=== PATIENT | male | born 1955 | race Caucasian/White ===

== ENCOUNTER 2017-05-20 05:18 | Day surgery (SDC) | payer OTHER ==
[~2017-05-20] VITALS: Ht 175.3 cm; Wt 103.9 kg
--- NOTE | ~2017-05-20 | H ---
[facility] [place] [address] HISTORY AND PHYSICAL Name: BRENNEN FELICIANO Room #: 150-17 [facility]..#: [id number] Admission: 05/20/17 Attend Phys: Fahad Ferguson MD Discharge: Date of : 53 Report #: [id number] THIS REPORT FOR: //name// CC: Stevie Ferguson DATE OF SERVICE: 05/20/2017 PREOPERATIVE DIAGNOSIS: Umbilical hernia. HISTORY OF PRESENT ILLNESS: The patient is a 62-year-old who was seen for umbilical hernia in the office. A few weeks ago, he has seen a urologist who noticed the hernia. He is complaining of right discomfort adjacent to the umbilicus. The hernia is getting bigger. He has gained some weight in the abdominal area. No cough. No chronic sneezing. No heavy lifting. He has been having some tremor issues. Bowels are working well. He does have difficulty urination, that is why he has seen a urologist. The patient noted to have an umbilical hernia, recommended repair. He did have cardiac evaluation and he has been cleared for surgery. PAST MEDICAL HISTORY: HIV positive, COPD, status post coronary artery disease, status post bypass graft, acid reflux, anxiety, near syncope, high blood pressure and hyperlipidemia. MEDICATIONS: Crestor 40 mg daily, alprazolam 0.5 mg 3 times a day as needed, Atripla, carvedilol 6.5, aspirin 81 mg, Nitrostat, ____, Wellbutrin, multivitamin, gabapentin, benzonatate, Flomax. ALLERGIES: HE IS ALLERGIC TO CYMBALTA. PAST SURGICAL HISTORY: [facility] FAMILY HISTORY: Heart disease and cancer. SOCIAL HISTORY: Retired, on disability. Has disability. He quit smoking 8 years ago, occasionally drinks. REVIEW OF SYSTEMS: Difficulty with breathing, heart issues and tremor. PHYSICAL EXAMINATION: GENERAL: The patient is a well-nourished male, in no acute distress. HEENT: Pupils react to light. Extraocular muscles are intact. Oropharynx clear. NECK: Soft and supple. No mass, no JVD. LUNGS: Clear. HEART: Regular rate and rhythm. No murmur or gallop. [facility] [address] [place] [address] HISTORY AND PHYSICAL Name: BRENNEN FELICIANO Room #: [address] [place] [address].#: [id number] Admission: 05/20/17 Attend Phys: Fahad Ferguson MD Discharge: Date of : 53 Report #: [id number] ABDOMEN: Soft, nondistended, nontender. No ascites. He does have a moderate size umbilical hernia. Partially reducible. EXTREMITIES: No cyanosis, clubbing, edema. IMPRESSION: The patient has a symptomatic umbilical hernia, here for repair. Does have cardiac disease. He was cleared by senior geotechnical engineer to proceed with umbilical hernia repair. Procedure was discussed, use of mesh was discussed. Risks of bleeding, infection, mesh infection were discussed. Hernia recurrence was discussed. The patient wished to proceed. By: [id number] Fahad Ferguson MD /nt
--- NOTE | ~2017-05-20 | O ---
[facility] [place] [address] OPERATIVE REPORT Name: BRENNEN FELICIANO Room #: 150[address] [place] [address]..#: [id number] Admission: 05/20/17 Attend Phys: Fahad Ferguson MD Discharge: Date of : 53 Report #: [id number] THIS REPORT FOR: //name// CC: Stevie Ferguson DATE OF SERVICE: 05/20/2017 PREOPERATIVE DIAGNOSIS: Symptomatic umbilical hernia. POSTOPERATIVE DIAGNOSIS: Symptomatic umbilical hernia. PROCEDURE PERFORMED: Repair of umbilical hernia with medium Ventralex ST patch. ANESTHESIA: General. SURGEON: Fahad Ferguson M.D. COMPLICATIONS: None. ESTIMATED BLOOD LOSS: 2 mL. PROCEDURE NOTE: With the patient under general anesthesia with an LMA, abdomen was prepped and draped in sterile fashion. IV antibiotic was administered. Timeout was performed. A 0.25% Marcaine was used to anesthetize the skin and subcutaneous tissue. Curved incision was made infraumbilically. The skin of the umbilicus is fairly thin. There is a 3 cm size hernia sac. There is omental fat within the hernia sac. The hernia sac was partially excised. The fascia was then cleaned off. The peritoneum of the hernia sac was then closed with 4-0 PDS. The hernia sac was then reduced below the fascia. Dissection was then carried out in the properitoneal space. Cautery was used to obtain hemostasis. Cautery and blunt dissection was performed freeing the peritoneum from the wall. Once this was reduced and a pocket was made in the properitoneal space, a medium sized Ventralex patch was placed. This was folded and then placed in the properitoneal space under the fascia. The mesh opened up well. The fascia was then trimmed to clean tissue and then closed with horizontal mattress fashion of 0 Prolene x 2. The skin of the umbilicus was then sewn down to the fascia. This was performed with a 4-0 PDS suture x 2. The skin was then closed with 5-0 PDS running subcuticular fashion. Steri-Strips were applied, 4 x 4 was placed in the umbilicus and Steri-Strip was then placed over the gauze dressing. The patient was awakened and taken to recovery room. By: [id number] Fahad Ferguson MD /nt
[~2017-05-20 05:18] MED LIST: ANORO ELLIPTA1 EACH INH; ATRIPLA TABLET1 EACH PO; BUPROPION HCL150 M1 PO; CARVEDILOL6.25 MG; CENTRUM SILVER1 EAC4 PO; CRESTOR40 MG PO; FLOMAX0.4 MG PO; NEURONTIN 400400 M1 PO; OMEPRAZOLE 20 M20 M1 PO; XANAX 0.5 MG0.5 MG PO
[2017-05-20 11:35] LABS: HEMATOCRIT 46.8 % (42.0-52.0); HEMOGLOBIN 16.1 gm/dL (14.0-18.0)
[2017-05-20 11:45] VITALS: BP 129/93
[2017-05-20] MEDS ORDERED: PERCOCET PO (13:11)
[2017-05-20 13:47] VITALS: BP 129/93
== END 2017-05-20 14:23 | disposition home or self-care (01) ==
LOC: OR 05:18 → TBA 05:18 → OR 14:23
PROVIDERS: Surgery
DX: K42.9 Umbilical hernia without obstruction or gangrene (principal); I11.0 Hypertensive heart disease with heart failure; I25.10 Atherosclerotic heart disease of native coronary artery without angina pectoris; I25.2 Old myocardial infarction; E78.5 Hyperlipidemia, unspecified; J43.9 Emphysema, unspecified; K21.9 Gastro-esophageal reflux disease without esophagitis; F41.8 Other specified anxiety disorders; Z79.82 Long term (current) use of aspirin; Z95.1 Presence of aortocoronary bypass graft; Z79.899 Other long term (current) drug therapy; Z88.8 Allergy status to other drugs, medicaments and biological substances; Z82.49 Family history of ischemic heart disease and other diseases of the circulatory system; Z98.890 Other specified postprocedural states; Z87.891 Personal history of nicotine dependence; Z95.5 Presence of coronary angioplasty implant and graft
CPT/HCPCS: 50010; 50101; 50130; 50386; 50403; 56524; 56525; 62110; 62900; 70005

== ENCOUNTER → 2018-12-06 | Outpatient (CLI) | payer OTHER ==
[~2018-12-06] MED LIST changes: +PERCOCET PO
== END ==
LOC: RAD 15:26
DX: M47.816 Spondylosis without myelopathy or radiculopathy, lumbar region (principal); M48.061 Spinal stenosis, lumbar region without neurogenic claudication; M54.32 Sciatica, left side

== ENCOUNTER → 2019-01-13 | Outpatient (CLI) | payer OTHER | LOC: RAD 13:36 | DX: M47.816 Spondylosis without myelopathy or radiculopathy, lumbar region (principal); B20 Human immunodeficiency virus [HIV] disease ==

== ENCOUNTER → 2019-05-29 | Outpatient (CLI) | payer OTHER ==
[2019-05-29 13:32] LABS: CREATININE 1.4 mg/dL (0.7-1.3)
== END ==
LOC: MRI 10:17
PROVIDERS: Psychiatry & Neurology Neurology
DX: M51.34 Other intervertebral disc degeneration, thoracic region (principal); G95.9 Disease of spinal cord, unspecified; G63 Polyneuropathy in diseases classified elsewhere; B20 Human immunodeficiency virus [HIV] disease; G62.9 Polyneuropathy, unspecified; G25.81 Restless legs syndrome

== ENCOUNTER → 2019-06-09 | Outpatient (CLI) | payer OTHER ==
[2019-06-09 12:24] LABS: CREATININE 1.2 mg/dL (0.7-1.3)
== END ==
LOC: MRI 11:41
PROVIDERS: Internal Medicine
DX: M51.06 Intervertebral disc disorders with myelopathy, lumbar region (principal); M48.062 Spinal stenosis, lumbar region with neurogenic claudication; M12.88 Other specific arthropathies, not elsewhere classified, other specified site; G95.9 Disease of spinal cord, unspecified; B20 Human immunodeficiency virus [HIV] disease; G63 Polyneuropathy in diseases classified elsewhere

== ENCOUNTER → 2019-09-18 | Outpatient (CLI) | payer OTHER | LOC: ULTRA 12:28 | DX: I73.9 Peripheral vascular disease, unspecified (principal) ==

== ENCOUNTER → 2020-02-14 | Outpatient (CLI) | payer OTHER | LOC: RAD 15:26 | PROVIDERS: ATTEND Internal Medicine | DX: S92.412A Displaced fracture of proximal phalanx of left great toe, initial encounter for closed fracture (principal); X58.XXXA Exposure to other specified factors, initial encounter; Y93.89 Activity, other specified; Y92.89 Other specified places as the place of occurrence of the external cause; Y99.8 Other external cause status ==

== ENCOUNTER → 2020-03-14 | Outpatient (CLI) | payer OTHER | LOC: MRI 08:50 | PROVIDERS: ATTEND Internal Medicine | DX: M47.812 Spondylosis without myelopathy or radiculopathy, cervical region (principal); M48.02 Spinal stenosis, cervical region; M25.78 Osteophyte, vertebrae ==

== ENCOUNTER → 2020-03-22 | Outpatient (CLI) | payer OTHER | LOC: RAD 09:53 | PROVIDERS: ATTEND Specialist | DX: R50.9 Fever, unspecified (principal) ==

== ENCOUNTER → 2020-05-07 | Outpatient (CLI) | payer OTHER | LOC: MRI 11:45 | PROVIDERS: ATTEND Psychiatry & Neurology Neuromuscular Medicine | DX: G62.9 Polyneuropathy, unspecified (principal) ==

== ENCOUNTER → 2021-06-25 | Outpatient (CLI) | payer OTHER | LOC: RAD 13:40 | PROVIDERS: ATTEND Internal Medicine | DX: J98.4 Other disorders of lung (principal); M51.34 Other intervertebral disc degeneration, thoracic region ==